=== PATIENT | male | born 1975 | race Caucasian/White ===

== ENCOUNTER 2020-08-11 20:17 | Emergency (ER) | payer OTHER ==
[~2020-08-11] VITALS: Ht 180.3 cm; Wt 96.6 kg
[2020-08-11 20:20] VITALS: BP 156/84
--- NOTE | 2020-08-11 20:20 | NUR ---
PT. IS A 45 Y/O MALE THAT CAME INTO ED WITH C/O ELEVATED BP. PT. STATES THAT HE TOOK HIS BP AT 7:29PM AND THE READING WAS 200/101. UPON ASSESSMENT, RECHECKED PT. BP AND IT WAS 156/94. PT. STATES THAT HE DID NOT TAKE HIS BLOOD PRESSURE MEDICATION TODAY. PT. ALSO STATES 0/10 ON THE PAIN SCALE. SKIN IS PINK/WARM/DRY; AAOX4 WITH EVEN AND STEADY GAIT; LUNGS CLEAR BL; HR EVEN AND REGULAR; PT DENIES ANY FEVER, CP, SOB, OR COUGH AT THIS TIME; VSS; PATIENT POSITIONED FOR COMFORT; HOB ELEVATED; BEDRAILS UP X2; BED DOWN. ER MD MADE AWARE OF PT STATUS. PMH: DM 2 AND HTN ALLERGIES: PENICILLINS
--- NOTE | 2020-08-11 20:21 | NUR ---
PT AMBULATED TO BED 11.
--- NOTE | 2020-08-11 20:30 | NUR ---
CONNIE HORN AT BEDSIDE FOR EXAMINATION
[2020-08-11] MEDS ORDERED: KETOROLAC 60 MG/2 ML VIAL IM ONE (20:45)
[2020-08-11] MEDS ORDERED: ATA25 PO (20:48)
--- NOTE | 2020-08-11 20:56 | NUR ---
PT. LAYING COMFORTABLY IN BED, PHONE IN HAND PLAYING GAME. VOICES NO COMPLAINTS AT THIS TIME. AWAITING DISPOSTION
[2020-08-11 21:18] VITALS: BP 148/84
--- NOTE | 2020-08-11 21:18 | NUR ---
Patient discharged with v/s stable. Written and verbal after care instructions given and explained. Patient alert, oriented and verbalized understanding of instructions. Ambulatory with steady gait. All questions addressed prior to discharge. ID band removed. Patient advised to follow up with PMD. Rx of ATARAX HCL given. Patient educated on indication of medication including possible reaction and side effects. Opportunity to ask questions provided and answered.
== END 2020-08-11 21:18 | disposition home or self-care (01) ==
LOC: MED 20:17
DX: I10 Essential (primary) hypertension (principal); F41.9 Anxiety disorder, unspecified; E11.9 Type 2 diabetes mellitus without complications; F17.200 Nicotine dependence, unspecified, uncomplicated; Z98.890 Other specified postprocedural states; Z79.899 Other long term (current) drug therapy; Z88.0 Allergy status to penicillin
CPT/HCPCS: 96372; 99283; J1885

== ENCOUNTER 2020-08-16 15:35 | Emergency (ER) | payer OTHER ==
[~2020-08-16] VITALS: Ht 180.3 cm; Wt 97.1 kg
[~2020-08-16 15:35] MED LIST: ATA25 PO
[2020-08-16 15:44] VITALS: BP 165/97
--- NOTE | 2020-08-16 15:58 | NUR ---
pt ambulated to bed 05.
--- NOTE | 2020-08-16 16:07 | NUR ---
45 Y/O MALE C/O HEADACHE 08/17 DESCRIBES ACHING, NUMBNESS/TINGLING TO LEFT ARM RADIATES TO LEFT HAND AND LEG X1DAY. PT STATES HE WAS RECENTLY SEEN HERE IN THE ER FOR SIMILAR SYMPTOMS AND WAS DX AND GIVEN ATARAX. NO RELIEF OF SYMPTOMS AFTER TAKING ONE TODAY. PT STATES +N/-V, DENIES FEVER/CHILLS. PMH: HTN, DM, ANXIETY ALLERGY: PCN
[2020-08-16] MEDS ORDERED: LORazepam 1 MG TAB PO ONE (16:25)
[2020-08-16] MEDS ORDERED: ATI.5 PO (18:17)
== END 2020-08-16 18:27 | disposition home or self-care (01) ==
LOC: MED 15:35
DX: F41.9 Anxiety disorder, unspecified (principal); I10 Essential (primary) hypertension; R20.0 Anesthesia of skin; R51.9 Headache, unspecified; H53.8 Other visual disturbances; E11.9 Type 2 diabetes mellitus without complications; Z79.899 Other long term (current) drug therapy; Z88.0 Allergy status to penicillin
CPT/HCPCS: 70450; 99284

== ENCOUNTER 2021-02-12 07:58 | Emergency (ER) | payer OTHER ==
[~2021-02-12] VITALS: Ht 180.3 cm; Wt 102.1 kg
[~2021-02-12 07:58] MED LIST changes: +ATI.5 PO
[2021-02-12 08:23] VITALS: BP 152/95
[2021-02-12] MEDS ORDERED: CLIN300C2 PO (08:35)
[2021-02-12] MEDS ORDERED: ACET-8386 PO (08:35)
--- NOTE | 2021-02-12 09:02 | NUR ---
no nursing interventions provided
[2021-02-12 09:03] VITALS: BP 152/95
--- NOTE | 2021-02-12 09:03 | NUR ---
Patient discharged with v/s stable. Written and verbal after care instructions given and explained. Patient alert, oriented and verbalized understanding of instructions. Ambulatory with steady gait. All questions addressed prior to discharge. ID band removed. Patient advised to follow up with PMD. Rx of NORCO 5-325 AND CLINDAMYCIN given. Patient educated on indication of medication including possible reaction and side effects. Opportunity to ask questions provided and answered.
== END 2021-02-12 09:03 | disposition home or self-care (01) ==
LOC: MED 07:58
DX: K04.7 Periapical abscess without sinus (principal); E11.9 Type 2 diabetes mellitus without complications; I10 Essential (primary) hypertension; F17.200 Nicotine dependence, unspecified, uncomplicated; Z79.899 Other long term (current) drug therapy; Z98.890 Other specified postprocedural states; Z88.0 Allergy status to penicillin
CPT/HCPCS: 99283

== ENCOUNTER 2021-04-16 09:54 | Inpatient (IN) | payer OTHER, SELFPAY ==
[~2021-04-16] VITALS: Ht 180.3 cm; Wt 101.6 kg
[~2021-04-16 09:54] MED LIST changes: +ACET-8386 PO; +CLIN300C2 PO
[2021-04-16 10:10] VITALS: BP 160/88
[2021-04-16 11:25] LABS: BASOPHILS % (AUTO) 0.6 % (0.0-2.0); EOSINOPHILS # (AUTO) 0.3 K/uL (0-0.4); EOSINOPHILS % (AUTO) 3.1 % (0.0-4.0); HEMATOCRIT 44.9 % (36-52); HEMOGLOBIN 14.9 g/dL (12.0-18.0); LYMPHOCYTES # (AUTO) 1.3 K/uL (2.0-11.5); LYMPHOCYTES % (AUTO) 15.5 % (20.5-51.1); MEAN CORPUSCULAR HEMOGLOBIN 28 pg (27-31); MEAN CORPUSCULAR HGB CONC 33 g/dL (33-37); MONOCYTES # (AUTO) 0.5 K/uL (0.8-1.0); MONOCYTES % (AUTO) 6.1 % (1.7-9.3); NEUTROPHILS # (AUTO) 6.3 K/uL (1.8-7.7); NEUTROPHILS % (AUTO) 74.7 % (42.2-75.2); PLATELET COUNT (AUTO) 231 K/uL (140-450); RED BLOOD CELL COUNT(AUTO) 5.34 MIL/uL (4.20-6.10); RED CELL DISTRIBUTION WIDTH 13.8 % (11.6-13.7); WHITE BLOOD COUNT (AUTO) 8.5 K/uL (4.8-10.8)
--- NOTE | 2021-04-16 11:44 | NUR ---
PT C/O LOWER ABDOMINAL PAIN RADIATING TO BACK X1 WEEK. DENIES N/V.
[2021-04-16 11:52] LABS: ALBUMIN 3.2 g/dL (3.4-5.0); ANION GAP 11.4 (8-16); CARBON DIOXIDE 27.6 mmol/L (21-32); CREATININE 0.8 mg/dL (0.6-1.3)
[2021-04-16] MEDS ORDERED: LEVOFLOXACIN 750 MG/D5W PREMIX 150 ML IV ONE (13:00)
[2021-04-16] MEDS ORDERED: metroNIDAZOLE 500 MG/NS PREMIX 100 ML IV ONE (13:00)
[2021-04-16] MEDS ORDERED: ACETAMINOPHEN 325 MG TAB PO PRN (13:55)
[2021-04-16] MEDS ORDERED: ONDANSETRON 4 MG/2 ML VIAL IVP PRN (13:55)
[2021-04-16] MEDS: NACL 0.9% 1,000 ML IV SCH ×2 (14:21→21:02)
--- NOTE | 2021-04-16 14:46 | NUR ---
DC PLANNIN YRS OLD MALE PATIENT WAS ADMITTED FROM HOME WITH A DX OF PERFORATED DIVERTICULITIS. PATIENT HAS A HX OF CHRONIC PAIN HTN, DM, AND PSORIASIS. CT ABD SHOWED PERFORATED DIVERTICULITIS. ADMINISTERED IVF, IV ABX FLAGYL AND LEVAQUIN AND PAIN MEDS. KEPT PT NPO . CONSULTED WITH SURGEON DR BOWSER. DC PLAN TO GO HOME WHEN STABLE CM TO FOLLOW Addendum: 04/18/21 at 1454 by Renee Ku RN DC PLANNING: SEEN BY DR BOWSER ORDERED CONTINUING WITH CONSERVATIVE MANAGEMENT AND ABX. ADVANCED DIET. DC PLAN TO GO HOME TOMORROW IF STABLE WITH PO INTAKES. CM TO FOLLOW.
--- NOTE | 2021-04-16 15:00 | NUR ---
[place] no changes noted. safety maintained.
--- NOTE | 2021-04-16 17:00 | NUR ---
pt denies pain or discomfort. npo at this time. pending med surg bed.
--- NOTE | 2021-04-16 18:00 | NUR ---
PATIENT ARRIVED ON UNIT FROM ER. NO DISTRESS NOTED. PAIN WITHIN TOLERABLE. AAOX4, CALM, COOPERATIVE, SKIN INTACT. ORIENTED PATIENT TO ROOM AND CALL LIGHT. REVIEWED PLAN OF CARE WITH PATIENT. VERBALIZED UNDERSTANDING. SAFETY MEASURES IN PLACE, CALL LIGHT WITHIN REACH. WILL CONTINUE TO MONITOR.
--- NOTE | 2021-04-16 19:45 | NUR ---
GAVE REPORT TO PROGRAMMER BUSINESS NURSE FOR CONTINUITY OF CARE. PATIENT IN STABLE CONDITION.
[2021-04-16] MEDS: metroNIDAZOLE 500 MG/NS PREMIX 100 ML IV SCH (21:02)
[2021-04-16] MEDS: MORPHINE SULFATE 4 MG/ML SYR IVP PRN (21:03)
--- NOTE | 2021-04-16 22:00 | NUR ---
DR. BOWSER AT BEDSIDE GOING OVER PLAN OF CARE FOR PATIENT. INSTRUCTED PATIENT IS NPO BUT ICE CHIPS IS OK AND SURGERY IS NOT NEEDED AT THIS TIME.
[2021-04-16 22:20] VITALS: BP 125/77
[2021-04-17] MEDS: MORPHINE SULFATE 4 MG/ML SYR IVP PRN ×3 (02:58→20:16)
[2021-04-17 04:00] VITALS: BP 121/79
[2021-04-17] MEDS: metroNIDAZOLE 500 MG/NS PREMIX 100 ML IV SCH ×3 (05:12→20:14)
[2021-04-17 07:09] LABS: ANION GAP 12.4 (8-16); CARBON DIOXIDE 26.7 mmol/L (21-32); CREATININE 0.9 mg/dL (0.6-1.3); POTASSIUM 4.1 mmol/L (3.5-5.1)
[2021-04-17 07:28] LABS: BASOPHILS % (AUTO) 0.6 % (0.0-2.0); EOSINOPHILS # (AUTO) 0.3 K/uL (0-0.4); EOSINOPHILS % (AUTO) 4.3 % (0.0-4.0); HEMOGLOBIN 14.2 g/dL (12.0-18.0); LYMPHOCYTES # (AUTO) 1.7 K/uL (2.0-11.5); LYMPHOCYTES % (AUTO) 25.1 % (20.5-51.1); MEAN CORPUSCULAR HEMOGLOBIN 27 pg (27-31); MEAN CORPUSCULAR HGB CONC 32 g/dL (33-37); MEAN CORPUSCULAR VOLUME 84.4 fL (80-94); MONOCYTES # (AUTO) 0.6 K/uL (0.8-1.0); MONOCYTES % (AUTO) 7.9 % (1.7-9.3); NEUTROPHILS # (AUTO) 4.3 K/uL (1.8-7.7); NEUTROPHILS % (AUTO) 62.1 % (42.2-75.2); PLATELET COUNT (AUTO) 220 K/uL (140-450); RED BLOOD CELL COUNT(AUTO) 5.22 MIL/uL (4.20-6.10); RED CELL DISTRIBUTION WIDTH 13.8 % (11.6-13.7); WHITE BLOOD COUNT (AUTO) 6.9 K/uL (4.8-10.8)
--- NOTE | 2021-04-17 07:30 | NUR ---
RECEIVED REPORT FROM LENS FINISHER NURSE.
[2021-04-17] MEDS: NACL 0.9% 1,000 ML IV SCH ×2 (09:34→20:14)
--- NOTE | 2021-04-17 10:14 | NUR ---
PATIENT HAS BEEN SCREENED AND CATEGORIZED LOW NUTRITION RISK. PATIENT WILL BE SEEN WITHIN 7 DAYS OF ADMISSION. 04/23/[address]
--- NOTE | 2021-04-17 11:20 | NUR ---
PT ATTEMPTING TO DETERMINE PRESCRIPTION NAME FOR PSORIASIS MEDICATION. NOTIFIED MD OF PT COMPLAINT OF ITCHING AND BLEEDING PSORIASIS PATCHES
[2021-04-17 12:00] VITALS: BP 126/76
[2021-04-17] MEDS: LEVOFLOXACIN 500 MG/D5W PREMIX 100 ML IV SCH (12:13)
[2021-04-17] MEDS ORDERED: TRIAMCINOLONE 0.1% CRM 15 GM TUBE TP PRN (14:45)
--- NOTE | 2021-04-17 15:42 | NUR ---
PT RECEIVED PSORIASIS MEDICATION PER MD ORDER. APPLIED CREAM TO PT BACK AND SHOULDERS. PT PROVIDED WARMER TO ASSIST WITH PAIN AND ITCHING
--- NOTE | 2021-04-17 19:21 | NUR ---
ENDORSED PT TO TOE STRIPPER NURSE
--- NOTE | 2021-04-17 19:22 | NUR ---
RECEIVED BEDSIDE REPORT FROM DAY RN. PT IS AAOX4 AMBULATORY ABLE TO MAKE NEEDS KNOWN. C/C ABD PAIN. ON BOWEL REST OK TO HAVE ICE CHIPS. IV ON R FA 20 G IVF INFUSING PER ORDERS. SKIN IS INTACT. POC REVIEWED WITH PT. CALL LIGHT IS WITHIN REACH. WILL CONTINUE TO MONITOR.
[2021-04-17 20:00] VITALS: BP 142/81
--- NOTE | 2021-04-17 20:14 | NUR ---
VSS. PT REQUEST BS TO BE CHECKED. BS 105. CANDIDO ABX NO INFUSING PER ORDERS. PRN MORPHINE GIVEN FOR ABD PAIN. MED EDUCATION GIVEN. ALL SAFETY MEASURES ARE IN PLACE. WILL CONTINUE TO MONITOR.
--- NOTE | 2021-04-17 22:37 | NUR ---
rounds made. pt resting in bed using cellphone denies any distress. gave ice chips per request. all needs met.
--- NOTE | 2021-04-17 23:58 | NUR ---
PATIENT OBSERVED RESTING IN BED USING PHONE. DENIES ANY DISTRESS. ALL NEEDS MET. WILL CONTINUE TO MONITOR.
--- NOTE | 2021-04-18 02:00 | NUR ---
ROUNDS MADE. PT OBSERVED LAYING IN BED WITH EYES CLOSED APPEARS TO BE ASLEEP. RESPIRATIONS ARE EQUAL AND UNLABORED. NO S/SX OF DISTRESS. CALL LIGHT IS WITHIN REACH.
[2021-04-18 04:00] VITALS: BP 121/62
--- NOTE | 2021-04-18 04:23 | NUR ---
VITAL SIGNS ARE WITHIN NORMAL LIMITS. ALL SAFETY MEASURES ARE IN PLACE. WILL CONTINUE TO MONITOR
[2021-04-18] MEDS: metroNIDAZOLE 500 MG/NS PREMIX 100 ML IV SCH ×3 (05:05→20:21)
[2021-04-18] MEDS: NACL 0.9% 1,000 ML IV SCH ×2 (06:48→15:55)
--- NOTE | 2021-04-18 07:27 | NUR ---
GAVE BEDSIDE REPORT TO DAY RN. PT ENDORSED IN STABLE CONDITION.
--- NOTE | 2021-04-18 07:30 | NUR ---
RECEIVED REPORT FROM LINING IRONER NURSE.
--- NOTE | 2021-04-18 11:12 | NUR ---
PT DENIES PAIN. NO S/S OF DISTRESS. CALL LIGHT IN REACH. PT REQUESTED TO SHOWER AFTER LUNCH AND AFTERNOON MEDICATIONS ARE COMPLETED
[2021-04-18] MEDS: LEVOFLOXACIN 500 MG/D5W PREMIX 100 ML IV SCH (11:41)
[2021-04-18 12:00] VITALS: BP 128/78
--- NOTE | 2021-04-18 13:11 | NUR ---
PT STARTED ON CLEAR LIQUID DIET. DC TOMORROW PER DR. BOWSER
--- NOTE | 2021-04-18 17:09 | NUR ---
PT TOLERATED CLEAR LIQUID DIET. PT EDUCATED ON FOODS ASSOCIATED WITH DIVERTICULOSIS DIAGNOSIS. PT VERBALIZED UNDERSTANDING. PT WAS ABLE TO MAKE MEAL PLAN FOR HOME COOKING. CALL LIGHT IN REACH. ALL SAFETY MEASURES IN PLACE
--- NOTE | 2021-04-18 19:18 | NUR ---
ENDORSED PT TO VICE PRESIDENT GLOBAL DIGITAL MARKETING NURSE
--- NOTE | 2021-04-18 19:50 | NUR ---
RECEIVED REPORT AT BEDSIDE.PT IS AWAKE,A&OX4.RESP.UNLABORED.IVF INFUSING WELL.LUNGS CLEAR.NO C/O PAIN NOW.CALL LIGHT WITHIN REACH.WILL CONTINUE MONITORING.
[2021-04-18 20:00] VITALS: BP 131/85
[2021-04-18] MEDS: MORPHINE SULFATE 4 MG/ML SYR IVP PRN (22:40)
--- NOTE | 2021-04-19 | NUR ---
HAD C/O ABD.PAIN EARLIER.PAIN MED GIVEN,NO C/O PAIN NOW.IVF IS IN PROGRESS.CALL LIGHT IN REACH.
[2021-04-19 04:00] VITALS: BP 128/75
[2021-04-19] MEDS: NACL 0.9% 1,000 ML IV SCH ×2 (04:50→11:34)
[2021-04-19] MEDS: metroNIDAZOLE 500 MG/NS PREMIX 100 ML IV SCH ×2 (04:51→12:36)
--- NOTE | 2021-04-19 07:31 | NUR ---
ENDORSED TO AM NURSE.
[2021-04-19 08:00] VITALS: BP 168/69
[2021-04-19] MEDS: MORPHINE SULFATE 4 MG/ML SYR IVP PRN (08:34)
[2021-04-19 10:21] VITALS: BP 159/95
--- NOTE | 2021-04-19 10:24 | NUR ---
PATIENT REPORTS PAIN IS IMPROVED. BP 159/95. PATIENT AMBULATING TO SHOWER INDEPENDENTLY.
[2021-04-19] MEDS: LEVOFLOXACIN 500 MG/D5W PREMIX 100 ML IV SCH (11:33)
--- NOTE | 2021-04-19 11:41 | NUR ---
BLOOD SUGAR 119. REPEAT BP WNL. NO COMPLAINTS AT THIS TIME.
[2021-04-19 11:42] VITALS: BP 133/82
[2021-04-19] MEDS ORDERED: CIPR500T4 PO (14:18)
[2021-04-19] MEDS ORDERED: METR-520 PO (14:20)
[2021-04-19 14:47] VITALS: BP 133/82
--- NOTE | 2021-04-19 15:30 | NUR ---
RECEIVED DISCHARGE ORDER, EXPLAINED MEDICATIONS, SIDE EFFECTS SCHEDULE TO PATIENT, VERBALIZED UNDERSTANDING.PATIENT AWARE OF RETURN PRECAUTIONS. PAIN CONTROLLED AT THIS TIME. IV REMOVED WITH CATHETER TIP INTACT. WALKED WITH PATIENT TO LOBBY, PER PATIENT, HE WILL WALK HOME BECAUSE HE LIVES NEARBY.
== END 2021-04-19 15:30 | disposition home or self-care (01) | DRG 244 ==
LOC: MED 09:54 → MMU 13:57 → MTU 16:55
PROVIDERS: ADMIT Hospitalist; ATTEND Hospitalist
DX: K57.20 Diverticulitis of large intestine with perforation and abscess without bleeding (principal); E44.1 Mild protein-calorie malnutrition; E11.9 Type 2 diabetes mellitus without complications; I10 Essential (primary) hypertension; Z20.822 Contact with and (suspected) exposure to COVID-19; L40.9 Psoriasis, unspecified; M54.9 Dorsalgia, unspecified; G89.29 Other chronic pain; Z88.0 Allergy status to penicillin; Z79.899 Other long term (current) drug therapy; Z79.2 Long term (current) use of antibiotics; Z68.31 Body mass index [BMI] 31.0-31.9, adult
CPT/HCPCS: 36415; 80048; 80053; 82948; 83690; 83735; 85025; 87040; 87081; 96365; 96368; 99291; J1956; J2270; J3490

== ENCOUNTER 2021-06-28 10:02 | Emergency (ER) | payer OTHER ==
[~2021-06-28] VITALS: Ht 180.3 cm; Wt 101.2 kg
[~2021-06-28 10:02] MED LIST changes: +CIPR500T4 PO; -CLIN300C2 PO; +METR-520 PO
[2021-06-28 10:10] VITALS: BP 129/84
--- NOTE | 2021-06-28 10:15 | NUR ---
46 Y/O MALE BIB FOR LOWER ABDOMINAL PAIN 7/10 THROBBING X2DAYS. PT STATED DENIED ANY BLOOD IN STOOL AND GROSS HEMATURIA. TOOK IBUPROFEN 800MG FOR PAIN, WITH MINIMAL REFLIEF. STATED THROBBING PAIN WHEN GOING TO THE BATHROOM AND GOING TO PEE. DIARRHEA PMH: DM, HTN, DIVERTICULOSIS, NEUROPATHY, PSORIASIS ALLERGIES: PENICILLINS RX: GABAPENTIN, IBUPROFEN 800, METFORMIN, NAPROXEN, LOSARTAN
--- NOTE | 2021-06-28 10:37 | NUR ---
LAB AT BEDSIDE
[2021-06-28 10:49] LABS: BASOPHILS % (AUTO) 0.6 % (0.0-2.0); EOSINOPHILS # (AUTO) 0.3 K/uL (0-0.4); EOSINOPHILS % (AUTO) 5.6 % (0.0-4.0); LYMPHOCYTES % (AUTO) 38.3 % (20.5-51.1); MEAN CORPUSCULAR HEMOGLOBIN 28 pg (27-31); MEAN CORPUSCULAR HGB CONC 33 g/dL (33-37); MEAN CORPUSCULAR VOLUME 83.7 fL (80-94); MONOCYTES # (AUTO) 0.4 K/uL (0.8-1.0); MONOCYTES % (AUTO) 7.1 % (1.7-9.3); NEUTROPHILS # (AUTO) 2.5 K/uL (1.8-7.7); NEUTROPHILS % (AUTO) 48.4 % (42.2-75.2); PLATELET COUNT (AUTO) 276 K/uL (140-450); RED BLOOD CELL COUNT(AUTO) 5.37 MIL/uL (4.20-6.10); RED CELL DISTRIBUTION WIDTH 14.6 % (11.6-13.7); WHITE BLOOD COUNT (AUTO) 5.2 K/uL (4.8-10.8)
[2021-06-28 10:49] LABS: APPEARANCE,URINE CLEAR (CLEAR); BILIRUBIN,URINE NEGATIVE (NEGATIVE); BLOOD, URINE NEGATIVE (NEGATIVE); COLOR,URINE YELLOW (YELLOW); LEUKOCYTE ESTERASE ,URINE NEGATIVE (NEGATIVE); NITRITE, URINE NEGATIVE (NEGATIVE); UGLUCOSE NEGATIVE (NEGATIVE)
[2021-06-28 11:00] LABS: ALBUMIN 3.7 g/dL (3.4-5.0); ANION GAP 14.6 (8-16); CARBON DIOXIDE 24.7 mmol/L (21-32); CREATININE 0.7 mg/dL (0.6-1.3); POTASSIUM 4.3 mmol/L (3.5-5.1); TOTAL BILIRUBIN 0.3 mg/dL (0.0-1.0)
[2021-06-28 12:05] VITALS: BP 111/56
[2021-06-28] MEDS ORDERED: LOPE1TAB14 PO (13:08)
[2021-06-28] MEDS ORDERED: ONDA-188 PO (13:08)
[2021-06-28] MEDS ORDERED: BEN10 PO (13:08)
--- NOTE | 2021-06-28 13:26 | NUR ---
Patient discharged with v/s stable. Written and verbal after care instructions ABOUT ABD PAIN AND VIRAL GASTROENTERITIS given and explained. Patient alert, oriented and verbalized understanding of instructions. Ambulatory with steady gait. All questions addressed prior to discharge. ID band removed. Patient advised to follow up with PMD. Rx of BENTYL, ZOFRAN ODT, IMMODIUM MULTI-SYMPTOM REL CAPLET given. Patient educated on indication of medication including possible reaction and side effects. Opportunity to ask questions provided and answered.
== END 2021-06-28 13:26 | disposition home or self-care (01) ==
LOC: MED 10:02
DX: A08.4 Viral intestinal infection, unspecified (principal); E11.9 Type 2 diabetes mellitus without complications; I10 Essential (primary) hypertension; Z88.0 Allergy status to penicillin; Z79.899 Other long term (current) drug therapy
CPT/HCPCS: 36415; 80053; 81002; 81003; 83690; 85025; 87086; 99284

== ENCOUNTER 2021-07-23 10:53 | Day surgery (SDC) | payer OTHER ==
[~2021-07-23] VITALS: Ht 180.3 cm; Wt 101.6 kg
[~2021-07-23 10:53] MED LIST changes: +BEN10 PO; +LOPE1TAB14 PO; +ONDA-188 PO
[2021-07-23] MEDS ORDERED: MIDAZOLAM 2 MG/2 ML VIAL ONE ×2 (12:22→12:23)
[2021-07-23] MEDS ORDERED: diphenhydrAMINE 50 MG/ML VIAL ONE (12:22)
[2021-07-23] MEDS ORDERED: fentaNYL citrate 0.05 MG/ML VIAL ONE (12:22)
[2021-07-23] MEDS ORDERED: LIDOCAINE 2% 100 MG/5 ML UJET TP ONE (12:23)
[2021-07-23] MEDS ORDERED: MIDAZOLAM 2 MG/2 ML VIAL IVP ONE (14:00)
[2021-07-23] MEDS ORDERED: diphenhydrAMINE 50 MG/ML VIAL IVP ONE (14:00)
[2021-07-23] MEDS ORDERED: fentaNYL citrate 0.05 MG/ML VIAL IVP ONE (14:00)
== END 2021-07-23 13:54 | disposition home or self-care (01) ==
LOC: MDS 10:53 → MMU 10:54 → MDS 13:54
PROVIDERS: ATTEND Internal Medicine Gastroenterology
DX: Z12.11 Encounter for screening for malignant neoplasm of colon (principal); D12.2 Benign neoplasm of ascending colon; K57.92 Diverticulitis of intestine, part unspecified, without perforation or abscess without bleeding; I10 Essential (primary) hypertension; E11.9 Type 2 diabetes mellitus without complications; Z88.0 Allergy status to penicillin; Z79.899 Other long term (current) drug therapy; Z20.822 Contact with and (suspected) exposure to COVID-19
CPT/HCPCS: 45385; 87426; J1200; J2250; J3010

== ENCOUNTER 2021-09-21 08:10 | Emergency (ER) | payer OTHER ==
[~2021-09-21] VITALS: Ht 180.3 cm; Wt 102.1 kg
[2021-09-21 08:19] VITALS: BP 130/76
--- NOTE | 2021-09-21 08:23 | NUR ---
DR CORTES IN TRIAGE FOR EVAL
--- NOTE | 2021-09-21 08:23 | NUR ---
1Y01M MALE BIB MOTHER C/O OF SWELLING AND REDNESS OF THE LEFT MIDDLE FINGER. PER MOTHER NOTED SMALL CUT ON THE AREA. NKA PMH: DENIES
[2021-09-21] MEDS ORDERED: KETOROLAC 30 MG/ML VIAL IM ONE (08:30)
[2021-09-21] MEDS ORDERED: LID5T TP (08:32)
[2021-09-21] MEDS ORDERED: CYCL-711 PO (08:32)
[2021-09-21] MEDS ORDERED: DICL100G5 TP (08:32)
--- NOTE | 2021-09-21 08:46 | NUR ---
dr mccallum speaking to pt
--- NOTE | 2021-09-21 08:47 | NUR ---
pt stated decrease in pain sensation at this time
--- NOTE | 2021-09-21 08:51 | NUR ---
Patient discharged with v/s stable. Written and verbal after care instructions given and explained. Patient alert, oriented and verbalized understanding of instructions. Ambulatory with steady gait. All questions addressed prior to discharge. ID band removed. Patient advised to follow up with PMD. Rx of flexerl, diclofenac sodium, lidoderm given. Patient educated on indication of medication including possible reaction and side effects. Opportunity to ask questions provided and answered.
== END 2021-09-21 08:51 | disposition home or self-care (01) ==
LOC: MED 08:10
DX: M54.50 Low back pain, unspecified (principal); M62.838 Other muscle spasm; G89.29 Other chronic pain; E11.9 Type 2 diabetes mellitus without complications; I10 Essential (primary) hypertension; L40.9 Psoriasis, unspecified; Z79.899 Other long term (current) drug therapy; Z88.0 Allergy status to penicillin
CPT/HCPCS: 96372; 99283; J1885

== ENCOUNTER 2021-12-30 16:12 | Emergency (ER) | payer OTHER ==
[~2021-12-30] VITALS: Ht 180.3 cm; Wt 101.4 kg
[~2021-12-30 16:12] MED LIST changes: +CYCL-711 PO; +DICL100G5 TP; +LID5T TP
[2021-12-30 17:00] VITALS: BP 171/94
--- NOTE | 2021-12-30 17:08 | NUR ---
COVID, FLU SWABS DONE.
--- NOTE | 2021-12-30 18:33 | NUR ---
Patient being evaluated by LUIS EDUARDO RODRIGUEZ at [facility].
[2021-12-30] MEDS ORDERED: BENZ-300 PO (18:36)
[2021-12-30] MEDS ORDERED: IBUP-2213 PO (18:36)
[2021-12-30] MEDS ORDERED: PROM118S5 PO (18:36)
[2021-12-30] MEDS ORDERED: TAM75 PO (19:51)
[2021-12-30 19:57] VITALS: BP 154/87
--- NOTE | 2021-12-30 19:57 | NUR ---
Patient discharged with v/s stable. Written and verbal after care instructions given and explained. Patient alert, oriented and verbalized understanding of instructions. Ambulatory with steady gait. All questions addressed prior to discharge. ID band removed. Patient advised to follow up with PMD. Rx of Ibuprofen, Cepacol sore throat Lozenge and Promethazine-Dm Syrup given. Patient educated on indication of medication including possible reaction and side effects. Opportunity to ask questions provided and answered.
== END 2021-12-30 19:57 | disposition home or self-care (01) ==
LOC: MED 16:12
DX: B34.9 Viral infection, unspecified (principal); Z20.822 Contact with and (suspected) exposure to COVID-19; J10.1 Influenza due to other identified influenza virus with other respiratory manifestations; E11.9 Type 2 diabetes mellitus without complications; I10 Essential (primary) hypertension; Z88.0 Allergy status to penicillin; Z79.899 Other long term (current) drug therapy
CPT/HCPCS: 99283

== ENCOUNTER 2022-01-28 13:50 | Emergency (ER) | payer OTHER ==
[~2022-01-28] VITALS: Ht 180.3 cm; Wt 102.1 kg
[~2022-01-28 13:50] MED LIST changes: -ACET-8386 PO; +ACET-8905 PO; +BENZ-300 PO; +IBUP-2213 PO; +PROM118S5 PO; +TAM75 PO
[2022-01-28 14:06] VITALS: BP 159/90
--- NOTE | 2022-01-28 14:08 | NUR ---
46/M WALKED IN C/O SORE THROAT ONSET TODAY ACCOMPANIED BY GREEN PHLEGM. PT REPORTS BEING SEEN HERE 2 WKS AGO FOR SAME S/SX AND WAS DX FLU. DENIES FEVER, AFEBRILE AT BEDSIDE. PT SWABBED FOR COVID, FLU, AND STREP. PT AMBULATED TO LOBBY. VITALS STABLE, AAO4. PMH: DM, HTN
[2022-01-28] MEDS ORDERED: BPM/118S31 PO (15:50)
[2022-01-28] MEDS ORDERED: CEPH-588 PO (15:50)
[2022-01-28] MEDS ORDERED: IBUP-2213 PO (15:50)
--- NOTE | 2022-01-28 15:53 | NUR ---
Discharged by LUIS EDUARDO Jones. Patient discharged with v/s stable. Written and verbal after care instructions given. Patient alert, oriented and verbalized understanding of instructions. Ambulatory with steady gait. All questions addressed prior to discharge. ID band removed. Patient advised to follow up with PMD. Rx of Bromfed, Keflex and Ibuprofen given. Opportunity to ask questions provided and answered. WORK NOTE HANDED TO PATIENT.
--- NOTE | 2022-01-28 16:47 | NUR ---
The patient's care was reviewed and supervised by Keri Gama, RN, RN.
== END 2022-01-28 15:53 | disposition home or self-care (01) ==
LOC: MED 13:50
DX: J02.0 Streptococcal pharyngitis (principal); Z20.822 Contact with and (suspected) exposure to COVID-19; H92.03 Otalgia, bilateral; E11.9 Type 2 diabetes mellitus without complications; I10 Essential (primary) hypertension; Z79.899 Other long term (current) drug therapy; Z98.890 Other specified postprocedural states; Z88.0 Allergy status to penicillin
CPT/HCPCS: 87081; 99283

== ENCOUNTER 2022-08-01 14:42 | Inpatient (IN) | payer OTHER ==
[~2022-08-01] VITALS: Ht 180.3 cm; Wt 104.3 kg
[~2022-08-01 14:42] MED LIST changes: +BPM/118S31 PO; +CEPH-588 PO
[2022-08-01 14:44] VITALS: BP 148/94; PULSE 114; RESP 16; TEMP 97; O2SAT 96
--- NOTE | 2022-08-01 14:50 | NUR ---
blood glucose 301
[2022-08-01] MEDS ORDERED: NACL 0.9% 1,000 ML IV ONE (15:10)
[2022-08-01] MEDS ORDERED: ONDANSETRON 4 MG/2 ML VIAL IVP ONE (15:10)
[2022-08-01] MEDS ORDERED: MORPHINE SULFATE 4 MG/ML SYR IVP ONE (15:10)
[2022-08-01 15:35] LABS: BASOPHILS # (AUTO) 0.1 K/uL (0.00-0.22); EOSINOPHILS # (AUTO) 0.4 K/uL (0-0.4); HEMATOCRIT 44.7 % (36-52); HEMOGLOBIN 14.5 g/dL (12.0-18.0); LYMPHOCYTES % (AUTO) 30.8 % (20.5-51.1); MEAN CORPUSCULAR HEMOGLOBIN 28 pg (27-31); MEAN CORPUSCULAR HGB CONC 32 g/dL (33-37); MEAN CORPUSCULAR VOLUME 85.3 fL (80-94); MONOCYTES # (AUTO) 0.3 K/uL (0.8-1.0); MONOCYTES % (AUTO) 5.3 % (1.7-9.3); NEUTROPHILS # (AUTO) 3.7 K/uL (1.8-7.7); NEUTROPHILS % (AUTO) 56.9 % (42.2-75.2); PLATELET COUNT (AUTO) 255 K/uL (140-450); RED BLOOD CELL COUNT(AUTO) 5.24 MIL/uL (4.20-6.10); RED CELL DISTRIBUTION WIDTH 13.4 % (11.6-13.7); WHITE BLOOD COUNT (AUTO) 6.6 K/uL (4.8-10.8)
[2022-08-01 15:40] LABS: APPEARANCE,URINE CLEAR (CLEAR); BILIRUBIN,URINE NEGATIVE (NEGATIVE); BLOOD, URINE NEGATIVE (NEGATIVE); COLOR,URINE YELLOW (YELLOW); LEUKOCYTE ESTERASE ,URINE NEGATIVE (NEGATIVE); NITRITE, URINE NEGATIVE (NEGATIVE); PH,URINE 6.5 (5.0-9.0); UGLUCOSE 3+ (NEGATIVE)
[2022-08-01 15:54] LABS: RBC,URINE 0-5 /HPF (0-5)
[2022-08-01 15:55] LABS: TRICHOMONAS,URINE None Seen /HPF (None Seen); YEAST,URINE None Seen /HPF (None Seen)
[2022-08-01 15:58] LABS: ALBUMIN 3.4 g/dL (3.4-5.0); ANION GAP 13.7 (8-16); ASPARTATE AMINOTRANSFERASE 117 U/L (15-37); CARBON DIOXIDE 27.3 mmol/L (21-32); CHLORIDE 105 mmol/L (98-107); CREATININE 1.1 mg/dL (0.6-1.3); GFR ARICAN-AMERICAN 92 mL/min (>90); GLUCOSE 285 mg/dL (74-106); SODIUM SERUM 142 mmol/L (136-145); TOTAL BILIRUBIN 0.3 mg/dL (0.0-1.0); UREA NITROGEN, BLOOD 15 mg/dL (7-18)
--- NOTE | 2022-08-01 16:09 | NUR ---
wheeled to CT in wheelchair
--- NOTE | 2022-08-01 17:04 | NUR ---
PT ABLE TO SWALLOW W/O DIFFICULTY, MADE AWARE
[2022-08-01] MEDS ORDERED: ASPIRIN 325 MG TAB PO ONE (17:35)
[2022-08-01] MEDS ORDERED: IBUP-2217 PO (18:42)
[2022-08-01] MEDS ORDERED: LOSA100T52 PO (18:42)
[2022-08-01] MEDS ORDERED: GLIP5TAB13 PO (18:42)
[2022-08-01] MEDS ORDERED: GABA300C55 PO (18:42)
[2022-08-01] MEDS ORDERED: NAPR-54 PO (18:45)
[2022-08-01] MEDS ORDERED: METF-346 PO (18:45)
--- NOTE | 2022-08-01 20:25 | NUR ---
pt given water. pt able to swallow without difficulty ER MD Butterfield made aware.
[2022-08-01] MEDS ORDERED: POTASSIUM CHLORIDE 10 MEQ TABER PO PRN (21:00)
[2022-08-01] MEDS ORDERED: ACETAMINOPHEN 325 MG TAB PO PRN (21:00)
[2022-08-01] MEDS ORDERED: MORPHINE SULFATE 4 MG/ML SYR IVP PRN (21:00)
[2022-08-01] MEDS ORDERED: ONDANSETRON 4 MG/2 ML VIAL IVP PRN (21:00)
[2022-08-01] MEDS ORDERED: KCL 20 MEQ IN 100 mL PREMIX 200 ML IV PRN (21:00)
[2022-08-01] MEDS ORDERED: HYDROcodone/APAP 5/325 MG 1 TAB TAB PO PRN (21:00)
[2022-08-01] MEDS ORDERED: MAGNESIUM OXIDE 400 MG TAB PO PRN (21:00)
[2022-08-01] MEDS ORDERED: MAG SULF 2000 MG/WATER PREMIX 50 ML IV PRN (21:00)
--- NOTE | 2022-08-01 21:14 | NUR ---
pt feeling hungry. checked the blood sugar was 131. ER MD Butterfield made aware. Per ER okay to give food.
--- NOTE | 2022-08-01 21:20 | NUR ---
Patient will be admitted to care of Robert MCKINNEY. Admited to Telemetry. Will go to room 104A. Belongings list completed. Report to Franko HERNANDEZ.
[2022-08-01 21:40] VITALS: BP 158/88; PULSE 85; PULSE 90; RESP 18; TEMP 97.4; O2SAT 97
--- NOTE | 2022-08-01 22:00 | NUR ---
RECEIVED REPORT FROM ER NURSE DIANA FOR CONTINUITY OF CARE. PATIENT IS A&O X4. PATIENT IS ON ROOM AIR, BREATHING IS NORMAL WITH SYMMETRICAL RISE AND FALL OF CHEST. IV IS A 20G LAC; RUNNING NS 80. PATIENT IS SITTING IN HIGH-FOWLERS POSITION IN BED. BED IS IN LOWEST POSITION, WHEELS LOCKED, CALL LIGHT IN PLACE. WILL CONTINUE TO OBSERVE PATIENT.
[2022-08-01] MEDS ORDERED: DEXTROSE 50% 50 ML SYR IVP PRN (22:35)
[2022-08-01] MEDS: BLOOD GLUCOSE MONITORING 1 DEV DEV FS SCH (22:40)
[2022-08-01] MEDS: NACL 0.9% 1,000 ML IV SCH (22:52)
[2022-08-01] MEDS: INSULIN LISPRO SLIDING SCALE 100 UNITS/ML VIAL SUBQ PRN (23:12)
[2022-08-02] VITALS: BP 144/75; PULSE 72; PULSE 79; RESP 18; TEMP 98.2; O2SAT 97
--- NOTE | 2022-08-02 01:00 | NUR ---
LOOKED IN ON PATIENT. PATIENT IS STILL AWAKE ON HIS PHONE. ASKED PATIENT IF HE WAS OKAY; PATIENT PLEASANTLY STATED, "YES, I'M FINE." I TOLD THE PATIENT THAT WAS GOOD AND REMINDED HIM TO USE THE CALL LIGHT IF HE NEEDED ANYTHING.
[2022-08-02 04:00] VITALS: BP 153/84; PULSE 70; PULSE 80; RESP 18; TEMP 97.9; O2SAT 97
--- NOTE | 2022-08-02 04:30 | NUR ---
LOOKED IN ON PATIENT. PATIENT WAS STILL AWAKE ON HIS PHONE. PATIENT STATED THAT HE'S STILL DOING FINE AND JUST DOESN'T FEEL LIKE SLEEPING. REMINDED PATIENT TO USE CALL LIGHT IF HE NEEDED ANYTHING.
[2022-08-02 06:36] LABS: BASOPHILS % (AUTO) 0.4 % (0.0-2.0); EOSINOPHILS # (AUTO) 0.4 K/uL (0-0.4); EOSINOPHILS % (AUTO) 5.7 % (0.0-4.0); HEMOGLOBIN 13.4 g/dL (12.0-18.0); LYMPHOCYTES # (AUTO) 1.6 K/uL (2.0-11.5); LYMPHOCYTES % (AUTO) 22.3 % (20.5-51.1); MEAN CORPUSCULAR HEMOGLOBIN 28 pg (27-31); MEAN CORPUSCULAR HGB CONC 33 g/dL (33-37); MEAN CORPUSCULAR VOLUME 84.8 fL (80-94); MONOCYTES # (AUTO) 0.4 K/uL (0.8-1.0); NEUTROPHILS # (AUTO) 4.8 K/uL (1.8-7.7); NEUTROPHILS % (AUTO) 65.6 % (42.2-75.2); PLATELET COUNT (AUTO) 212 K/uL (140-450); RED BLOOD CELL COUNT(AUTO) 4.83 MIL/uL (4.20-6.10); RED CELL DISTRIBUTION WIDTH 13.4 % (11.6-13.7); WHITE BLOOD COUNT (AUTO) 7.3 K/uL (4.8-10.8)
[2022-08-02] MEDS: INSULIN LISPRO SLIDING SCALE 100 UNITS/ML VIAL SUBQ PRN ×4 (06:36→20:53)
[2022-08-02] MEDS: BLOOD GLUCOSE MONITORING 1 DEV DEV FS SCH ×5 (06:36→20:49)
[2022-08-02 06:44] LABS: ALBUMIN 3.1 g/dL (3.4-5.0); CREATININE 0.7 mg/dL (0.6-1.3); MAGNESIUM 1.5 mg/dL (1.8-2.4); TOTAL BILIRUBIN 0.6 mg/dL (0.0-1.0)
--- NOTE | 2022-08-02 07:40 | NUR ---
GOT REPORT FROM THE NIGHT NURSE, PT SLEEPING NO SOB.[id number]
--- NOTE | 2022-08-02 07:43 | NUR ---
ENDORSED TO DAY SHIFT NURSE COLLINS FOR CONTINUITY OF CARE. PATIENT IS STABLE.
[2022-08-02 08:00] VITALS: BP 150/78; PULSE 67; PULSE 75; RESP 20; TEMP 97.8; O2SAT 96
[2022-08-02] MEDS: ATORVASTATIN 20 MG TAB PO SCH (08:37)
[2022-08-02] MEDS: DOCUSATE SODIUM 100 MG GELCAP PO SCH (08:37)
[2022-08-02] MEDS: ASPIRIN 81 MG TAB.CHEW PO SCH (08:38)
--- NOTE | 2022-08-02 09:36 | NUR ---
PATIENT HAS BEEN SCREENED AND CATEGORIZED HIGH NUTRITION RISK. PATIENT WILL BE SEEN WITHIN 1-2 DAYS OF ADMISSION. 08/01/22-08/03/[address] [facility]NS CONSULT RECEIVED FOR WOUNDS/PRESSURE INJURY
[2022-08-02] MEDS: NACL 0.9% 1,000 ML IV SCH ×2 (09:48→22:00)
[2022-08-02] MEDS: LOSARTAN 50 MG TAB PO SCH (09:48)
[2022-08-02 12:00] VITALS: BP 149/82; PULSE 66; PULSE 73; RESP 20; TEMP 98.4; O2SAT 97
--- NOTE | 2022-08-02 15:13 | NUR ---
08/02/22 RD INITIAL ASSESSMENT COMPLETED.PLEASE REFER TO NUTRITION ASSESSMENT UNDER CARE ACTIVITY FOR ESTIMATED NUTRITIONAL NEEDS. 1. CONTINUE [facility] DIET TOLERATED 2. MONITOR BLOOD GLUCOSE 3. RD TO FOLLOW-UP 3-5 DAYS, MODERATE RISK AIDEN TORIBIO RD
[2022-08-02 16:00] VITALS: BP 154/83; PULSE 61; PULSE 62; RESP 20; TEMP 98.8
[2022-08-02] MEDS ORDERED: LORazepam 0.5 MG TAB PO PRN (19:15)
--- NOTE | 2022-08-02 19:33 | NUR ---
report given to the night nurse, pt stable no SOB.[id number]
[2022-08-02 20:00] VITALS: BP 150/88; PULSE 63; PULSE 68; RESP 18; TEMP 99.1; O2SAT 95
--- NOTE | 2022-08-02 20:05 | NUR ---
RECEIVED REPORT FROM NURSE SOLE. PATIENT RESTING COMFORTABLY IN BED ALERT ORIENTED. ABLE TO MAKE NEEDS KNOWN. NO DISTRESS IN ROOM AIR. NO COMPLAINTS OF PAIN AT THIS TIME. IVF NS INFUSING ORDERED TO LAC. CALL LIGHT IN REACH.
--- NOTE | 2022-08-02 20:54 | NUR ---
ADMINISTERED SCHEDULED DUE MEDICATIONS.
[2022-08-03] VITALS: BP 149/84; PULSE 63; PULSE 64; RESP 18; TEMP 97.6; O2SAT 98
[2022-08-03] MEDS: NACL 0.9% 1,000 ML IV SCH (01:12)
[2022-08-03 04:00] VITALS: BP 141/79; PULSE 54; PULSE 67; RESP 18; TEMP 98; O2SAT 98
[2022-08-03] MEDS: BLOOD GLUCOSE MONITORING 1 DEV DEV FS SCH (06:39)
--- NOTE | 2022-08-03 06:41 | NUR ---
CHECKED BLOOD SUGAR WAS 124. NO INSULIN COVERAGE NEEDED.
[2022-08-03 06:55] LABS: ALBUMIN 2.9 g/dL (3.4-5.0); ANION GAP 10.6 (8-16); BASOPHILS % (AUTO) 0.4 % (0.0-2.0); CARBON DIOXIDE 27.6 mmol/L (21-32); CREATININE 0.7 mg/dL (0.6-1.3); EOSINOPHILS # (AUTO) 0.4 K/uL (0-0.4); EOSINOPHILS % (AUTO) 5.3 % (0.0-4.0); HEMATOCRIT 40.6 % (36-52); HEMOGLOBIN 13.2 g/dL (12.0-18.0); LYMPHOCYTES # (AUTO) 1.8 K/uL (2.0-11.5); LYMPHOCYTES % (AUTO) 26.3 % (20.5-51.1); MAGNESIUM 1.7 mg/dL (1.8-2.4); MEAN CORPUSCULAR HEMOGLOBIN 28 pg (27-31); MEAN CORPUSCULAR HGB CONC 33 g/dL (33-37); MEAN CORPUSCULAR VOLUME 85.2 fL (80-94); MONOCYTES # (AUTO) 0.4 K/uL (0.8-1.0); MONOCYTES % (AUTO) 6.4 % (1.7-9.3); NEUTROPHILS # (AUTO) 4.2 K/uL (1.8-7.7); NEUTROPHILS % (AUTO) 61.6 % (42.2-75.2); PLATELET COUNT (AUTO) 195 K/uL (140-450); POTASSIUM 4.2 mmol/L (3.5-5.1); RED BLOOD CELL COUNT(AUTO) 4.77 MIL/uL (4.20-6.10); RED CELL DISTRIBUTION WIDTH 13.2 % (11.6-13.7); TOTAL BILIRUBIN 0.8 mg/dL (0.0-1.0); WHITE BLOOD COUNT (AUTO) 6.9 K/uL (4.8-10.8)
--- NOTE | 2022-08-03 07:17 | NUR ---
GAVE BEDSIDE REPORT TO AM NURSE FOR CONTINUITY OF CARE. PATIENT STABLE.
[2022-08-03 08:00] VITALS: BP 140/72; PULSE 63; RESP 18; TEMP 99.1; O2SAT 98
[2022-08-03] MEDS: LOSARTAN 50 MG TAB PO SCH (08:07)
[2022-08-03] MEDS: ATORVASTATIN 20 MG TAB PO SCH (08:07)
[2022-08-03] MEDS: DOCUSATE SODIUM 100 MG GELCAP PO SCH (08:07)
[2022-08-03] MEDS: ASPIRIN 81 MG TAB.CHEW PO SCH (08:07)
--- NOTE | 2022-08-03 09:14 | NUR ---
WOUND CARE NOTE: SKIN ASSESSMENT DONE. PT. ADMITTED WITH PLAQUE PSORIASIS TO LIMBS AND TRUNK OF BODY ANTERIOR AND POSTERIOR, NO OPEN WOUNDS. PT IS AAX4. PER PT. HE FOLLOW UP WITH HIS DERMATOLOGY REGULARLY WITH HUMIRA INJECTIONS AND TOPICAL CREAM PRESCRIBED BY HIS ACCESSIBILITY LIFT TECHNICIAN AND NO NEED FOR RECOMMENDATIONS. OKAY WITH HYDRAGUARD BARRIER CREAMS NEEDED. POC DISCUSSED WITH PRIMARY MARY GUADALUPE.
[2022-08-03 10:23] VITALS: PULSE 65
--- NOTE | 2022-08-03 11:29 | NUR ---
P.T. NOTES P.T. EVAL COMPLETED; REFER TO EVAL FOR DETAILS.
[2022-08-03] MEDS ORDERED: ATI.5 PO (12:17)
[2022-08-03] MEDS ORDERED: HYDRAGUARD CREAM TP SCH (13:00)
[2022-08-03 13:10] VITALS: BP 140/72; PULSE 65; RESP 18; TEMP 99.1
--- NOTE | 2022-08-03 13:25 | NUR ---
[employer] Em[employer] Supervisor BIRD SITTER met with pt. to conduct a Discharge Planning Assessment. Pt maintained eye contact, spoke clearly and was able to answer all questions. pt. resides in a home with roommates, is employed and takes blood pressure regularly. When asked if he takes his blood sugar levels, pt. stated he truly does not. He has Type II Diabetes. His PCP is Dr. Hayden. BIRD SITTER will remain available as needed.
--- NOTE | 2022-08-03 13:41 | NUR ---
PT DISCHARGED, HOME DISCHARGE INSTRUCTION IS GIVEN , ID AND IV REMOVED, ESCORTED PT OUTSIDE WITHOUT DISCOMFORT.[id number]
--- NOTE | 2022-08-04 11:12 | NUR ---
CALLED DR MAURER'S OFFICE LOCATED AT [address] [place] [address]. SPOKE WITH EMMANUEL WHO INFORMED ME THAT PATIENT HAD MADE AN APPOINTMENT FOR 08/04/2022 AT 1020 AND WAS SEEN.
[2022-08-04] MEDS ORDERED: ATI.5 PO (13:10)
== END 2022-08-03 13:45 | disposition home or self-care (01) | DRG 47 ==
LOC: MED 14:42 → MMU 20:58 → MTU 21:26
PROVIDERS: ADMIT Internal Medicine; ATTEND Internal Medicine
DX: G45.9 Transient cerebral ischemic attack, unspecified (principal); E11.40 Type 2 diabetes mellitus with diabetic neuropathy, unspecified; F41.9 Anxiety disorder, unspecified; I10 Essential (primary) hypertension; L40.9 Psoriasis, unspecified; Z88.0 Allergy status to penicillin; Z79.899 Other long term (current) drug therapy
CPT/HCPCS: 36415; 70450; 71045; 80053; 81001; 82948; 83735; 84484; 85025; 86886; 86900; 86901; 87081; 93005; 96361; 96374; 96375; 97116; 97163-GP; 99291; 99292; J1644; J1815; J2270; J2405; J3475; Q0092

== ENCOUNTER 2022-09-30 16:58 | Emergency (ER) | payer OTHER ==
[~2022-09-30] VITALS: Ht 180.3 cm; Wt 106.6 kg
[~2022-09-30 16:58] MED LIST changes: -CEPH-588 PO; -CIPR500T4 PO; +GABA300C55 PO; +GLIP5TAB13 PO; +IBUP-2217 PO; +LOSA100T52 PO; +METF-346 PO; -METR-520 PO; -TAM75 PO
[2022-09-30 17:09] VITALS: BP 146/77; PULSE 86; RESP 20; TEMP 98.2; O2SAT 100
[2022-09-30] MEDS ORDERED: ONDANSETRON 4 MG ODT PO ONE (17:50)
[2022-09-30] MEDS ORDERED: KETOROLAC 60 MG/2 ML VIAL IM ONE (18:25)
[2022-09-30] MEDS ORDERED: ATA25 PO (18:37)
[2022-09-30] MEDS ORDERED: ONDA8TAB87 PO (18:37)
[2022-09-30] MEDS ORDERED: IBUP-2213 PO (18:37)
[2022-09-30] MEDS ORDERED: OMEP40EC23 PO (18:37)
[2022-09-30 18:45] VITALS: BP 135/65; PULSE 82; RESP 17; TEMP 98.2; O2SAT 100
== END 2022-09-30 18:45 | disposition home or self-care (01) ==
LOC: MED 16:58
DX: R11.2 Nausea with vomiting, unspecified (principal); R10.13 Epigastric pain; R19.7 Diarrhea, unspecified; E11.9 Type 2 diabetes mellitus without complications; I10 Essential (primary) hypertension; Z88.0 Allergy status to penicillin; Z79.4 Long term (current) use of insulin; Z79.899 Other long term (current) drug therapy
CPT/HCPCS: 96372; 99283; J1885; Q0162

== ENCOUNTER 2022-11-02 09:51 | Emergency (ER) | payer OTHER ==
[~2022-11-02] VITALS: Ht 172.7 cm; Wt 105.7 kg
[~2022-11-02 09:51] MED LIST changes: -BPM/118S31 PO; +BROM118S70 PO; +DICL100G32 TP; -DICL100G5 TP; +OMEP40EC23 PO; +ONDA8TAB87 PO
[2022-11-02 10:18] VITALS: BP 151/85; PULSE 107; RESP 20; TEMP 97.8; O2SAT 98
[2022-11-02] MEDS ORDERED: CYCLOBENZAPRINE 10 MG TAB PO ONE (11:30)
[2022-11-02] MEDS ORDERED: ACETAMINOPHEN 325 MG TAB PO ONE (11:30)
[2022-11-02] MEDS ORDERED: LIDOCAINE 5% 1 EA PATCH TP ONE (11:30)
[2022-11-02] MEDS ORDERED: KETOROLAC 60 MG/2 ML VIAL IM ONE (11:30)
[2022-11-02] MEDS ORDERED: HYDR-5191 PO (12:50)
[2022-11-02] MEDS ORDERED: CYCL-711 PO (12:50)
[2022-11-02 12:57] VITALS: BP 148/85; PULSE 93; RESP 20; TEMP 97.8; O2SAT 98
== END 2022-11-02 12:57 | disposition home or self-care (01) ==
LOC: MED 09:51
DX: M54.50 Low back pain, unspecified (principal); G89.29 Other chronic pain; E11.9 Type 2 diabetes mellitus without complications; I10 Essential (primary) hypertension; Z79.84 Long term (current) use of oral hypoglycemic drugs; Z88.0 Allergy status to penicillin; Z79.899 Other long term (current) drug therapy; Z98.890 Other specified postprocedural states
CPT/HCPCS: 82948; 96372; 99284; J1885

== ENCOUNTER 2023-08-14 22:42 | Emergency (ER) | payer OTHER ==
[~2023-08-14] VITALS: Ht 180.3 cm; Wt 96.6 kg
[~2023-08-14 22:42] MED LIST changes: -GLIP5TAB13 PO; +GLIP5TAB22 PO; +HYDR-5071 PO
[2023-08-14 23:11] VITALS: BP 105/67; PULSE 86; RESP 15; TEMP 97.9; O2SAT 100
[2023-08-15] MEDS: KETOROLAC 30 MG/ML VIAL IM ONE (05:13)
[2023-08-15 06:10] LABS: BASOPHILS # (AUTO) 0.1 K/uL (0.00-0.22); BASOPHILS % (AUTO) 1.9 % (0.0-2.0); EOSINOPHILS # (AUTO) 0.2 K/uL (0-0.4); EOSINOPHILS % (AUTO) 4.2 % (0.0-4.0); HEMATOCRIT 45.5 % (36-52); HEMOGLOBIN 15.2 g/dL (12.0-18.0); LYMPHOCYTES # (AUTO) 1.6 K/uL (2.0-11.5); LYMPHOCYTES % (AUTO) 29.3 % (20.5-51.1); MEAN CORPUSCULAR HEMOGLOBIN 28 pg (27-31); MEAN CORPUSCULAR HGB CONC 33 g/dL (33-37); MONOCYTES # (AUTO) 0.7 K/uL (0.8-1.0); MONOCYTES % (AUTO) 12.1 % (1.7-9.3); NEUTROPHILS # (AUTO) 2.9 K/uL (1.8-7.7); NEUTROPHILS % (AUTO) 52.5 % (42.2-75.2); PLATELET COUNT (AUTO) 210 K/uL (140-450); RED BLOOD CELL COUNT(AUTO) 5.42 MIL/uL (4.20-6.10); WHITE BLOOD COUNT (AUTO) 5.5 K/uL (4.8-10.8)
[2023-08-15 06:43] LABS: ANION GAP 17.4 (8-16); CARBON DIOXIDE 19.2 mmol/L (21-32); CREATININE 1.5 mg/dL (0.6-1.3); POTASSIUM 3.6 mmol/L (3.5-5.1)
[2023-08-15] MEDS ORDERED: ACET-10509 PO (07:01)
[2023-08-15 07:17] VITALS: BP 119/77; PULSE 61; RESP 22; TEMP 98.3; O2SAT 98
== END 2023-08-15 07:17 | disposition home or self-care (01) ==
LOC: MED 22:42
DX: R53.1 Weakness (principal); E86.0 Dehydration; E11.9 Type 2 diabetes mellitus without complications; I10 Essential (primary) hypertension; Z79.899 Other long term (current) drug therapy; Z88.0 Allergy status to penicillin
CPT/HCPCS: 36415; 80048; 82948; 84484; 85025; 93005; 96372; 99285; J1885

== ENCOUNTER 2023-09-07 08:45 | Emergency (ER) | payer OTHER ==
[~2023-09-07] VITALS: Ht 180.3 cm; Wt 99.0 kg
[~2023-09-07 08:45] MED LIST changes: +ACET-10509 PO
[2023-09-07 08:59] VITALS: BP 158/104; PULSE 77; RESP 16; TEMP 98.1; O2SAT 98
[2023-09-07 10:32] VITALS: TEMP 98
[2023-09-07] MEDS: KETOROLAC 60 MG/2 ML VIAL IM ONE (10:38)
[2023-09-07 10:40] LABS: BASOPHILS # (AUTO) 0.1 K/uL (0.00-0.22); BASOPHILS % (AUTO) 0.9 % (0.0-2.0); EOSINOPHILS # (AUTO) 0.4 K/uL (0-0.4); EOSINOPHILS % (AUTO) 4.9 % (0.0-4.0); HEMATOCRIT 42.5 % (36-52); LYMPHOCYTES # (AUTO) 1.6 K/uL (2.0-11.5); MEAN CORPUSCULAR HEMOGLOBIN 28 pg (27-31); MEAN CORPUSCULAR HGB CONC 33 g/dL (33-37); MEAN CORPUSCULAR VOLUME 83.8 fL (80-94); MONOCYTES # (AUTO) 0.5 K/uL (0.8-1.0); MONOCYTES % (AUTO) 6.3 % (1.7-9.3); NEUTROPHILS # (AUTO) 5.7 K/uL (1.8-7.7); NEUTROPHILS % (AUTO) 68.9 % (42.2-75.2); PLATELET COUNT (AUTO) 237 K/uL (140-450); RED BLOOD CELL COUNT(AUTO) 5.07 MIL/uL (4.20-6.10); RED CELL DISTRIBUTION WIDTH 14.4 % (11.6-13.7); WHITE BLOOD COUNT (AUTO) 8.3 K/uL (4.8-10.8)
[2023-09-07 10:59] LABS: ANION GAP 9.6 (8-16); CALCIUM 9.3 mg/dL (8.5-10.1); CARBON DIOXIDE 30.2 mmol/L (21-32); CREATININE 0.9 mg/dL (0.6-1.3); POTASSIUM 3.8 mmol/L (3.5-5.1)
[2023-09-07 12:50] VITALS: BP 143/77; PULSE 54; RESP 21; O2SAT 97
[2023-09-07 12:51] LABS: ALANINE AMINOTRANSFERASE 20 U/L (12-78); ALBUMIN 3.1 g/dL (3.4-5.0); ALKALINE PHOSPHATASE 109 U/L (50-136); ASPARTATE AMINOTRANSFERASE 13 U/L (15-37); BILIRUBIN,DIRECT 0.1 mg/dL (0.0-0.3); LIPASE 62 U/L (16-77); TOTAL BILIRUBIN 0.4 mg/dL (0.0-1.0); TOTAL PROTEIN, SERUM 6.9 g/dL (6.4-8.2)
== END 2023-09-07 13:24 | disposition home or self-care (01) ==
LOC: MED 08:45
DX: R07.89 Other chest pain (principal); J06.9 Acute upper respiratory infection, unspecified; E11.9 Type 2 diabetes mellitus without complications; I10 Essential (primary) hypertension; F17.210 Nicotine dependence, cigarettes, uncomplicated; Z98.890 Other specified postprocedural states; Z79.899 Other long term (current) drug therapy; Z88.0 Allergy status to penicillin
CPT/HCPCS: 36415; 71045; 80048; 80076; 82948; 83690; 84484; 85025; 93005; 96372; 99285; J1885; Q0092

== ENCOUNTER 2023-10-01 06:28 | Day surgery (SDC) | payer OTHER ==
[~2023-10-01] VITALS: Ht 180.3 cm; Wt 97.5 kg
[~2023-10-01 06:28] MED LIST changes: -ACET-10509 PO; +ACET500T99 PO
[2023-10-01] MEDS ORDERED: LIDOCAINE 2% 100 MG/5 ML UJET TP ONE (07:34)
[2023-10-01] MEDS ORDERED: fentaNYL citrate 0.05 MG/ML VIAL ONE (07:34)
[2023-10-01] MEDS ORDERED: KETOROLAC 30 MG/ML VIAL ONE (08:07)
[2023-10-01] MEDS: KETOROLAC 30 MG/ML VIAL IVP ONE (08:10)
== END 2023-10-01 09:30 | disposition home or self-care (01) ==
LOC: MOR 06:28 → MMU 06:29 → MOR 09:30
PROVIDERS: ATTEND Internal Medicine Gastroenterology
DX: Z12.11 Encounter for screening for malignant neoplasm of colon (principal); K57.30 Diverticulosis of large intestine without perforation or abscess without bleeding; I10 Essential (primary) hypertension; E11.9 Type 2 diabetes mellitus without complications; F32.A Depression, unspecified; M19.90 Unspecified osteoarthritis, unspecified site; F17.210 Nicotine dependence, cigarettes, uncomplicated; Z86.010 Personal history of colon polyps; Z88.0 Allergy status to penicillin; Z79.899 Other long term (current) drug therapy; Z98.890 Other specified postprocedural states
CPT/HCPCS: 45378; 82948; J1885; J3010

== ENCOUNTER 2023-10-05 19:21 | Emergency (ER) | payer OTHER ==
[~2023-10-05] VITALS: Ht 180.3 cm; Wt 100.7 kg
[~2023-10-05 19:21] MED LIST changes: -ATA25 PO; -ATI.5 PO; -BEN10 PO; -BENZ-300 PO; -BROM118S70 PO; -LOPE1TAB14 PO; -OMEP40EC23 PO; -ONDA-188 PO; -ONDA8TAB87 PO; -PROM118S5 PO
[2023-10-05 19:48] VITALS: BP 125/70; PULSE 80; RESP 17; TEMP 98; O2SAT 98
[2023-10-05 21:04] VITALS: O2SAT 98
[2023-10-05] MEDS: DEXAMETHASONE 10 MG/ML VIAL IM ONE (21:26)
[2023-10-05] MEDS: KETOROLAC 60 MG/2 ML VIAL IM ONE (21:27)
[2023-10-05 23:31] VITALS: O2SAT 98
[2023-10-05] MEDS ORDERED: MELO-176 PO (23:50)
[2023-10-06 00:15] VITALS: BP 125/70; PULSE 80; RESP 17; TEMP 98; O2SAT 98
== END 2023-10-06 00:15 | disposition home or self-care (01) ==
LOC: MED 19:21
DX: M54.50 Low back pain, unspecified (principal); E11.9 Type 2 diabetes mellitus without complications; I10 Essential (primary) hypertension; Z98.890 Other specified postprocedural states; Z79.899 Other long term (current) drug therapy; Z88.0 Allergy status to penicillin
CPT/HCPCS: 96372; 99284; J1100; J1885

== ENCOUNTER 2023-10-12 09:28 | Emergency (ER) | payer OTHER ==
[~2023-10-12] VITALS: Ht 180.3 cm; Wt 101.6 kg
[~2023-10-12 09:28] MED LIST changes: +MELO-176 PO
[2023-10-12 09:44] VITALS: BP 148/71; PULSE 72; RESP 20; TEMP 98.1; O2SAT 100
--- NOTE | 2023-10-12 09:48 | NUR ---
PT TO BED 11
[2023-10-12 09:56] VITALS: BP 148/71; PULSE 72; RESP 20; TEMP 98.1
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
[2023-10-12 10:00] VITALS: O2SAT 100
--- NOTE | 2023-10-12 10:16 | NUR ---
PA RODRIGUEZ AT BEDTIME EVALUATING PATIENT
--- NOTE | 2023-10-12 10:30 | NUR ---
REGINA CURRY. WAS SEEN BY LUIS EDUARDO RODRIGUEZ BUT REQUEST TO LEAVE.
== END 2023-10-12 10:30 | disposition left against medical advice (07) ==
LOC: MED 09:28
DX: R04.0 Epistaxis (principal); M54.50 Low back pain, unspecified; G89.29 Other chronic pain; E11.9 Type 2 diabetes mellitus without complications; I10 Essential (primary) hypertension; Z79.899 Other long term (current) drug therapy; Z88.0 Allergy status to penicillin
CPT/HCPCS: 99281

== ENCOUNTER 2023-10-12 11:35 | Emergency (ER) | payer OTHER ==
[~2023-10-12] VITALS: Ht 180.3 cm; Wt 102.5 kg
[2023-10-12 11:41] VITALS: BP 136/87; PULSE 70; RESP 18; TEMP 98.5; O2SAT 98
[2023-10-12 12:33] VITALS: O2SAT 98
== END 2023-10-12 13:40 | disposition home or self-care (01) ==
LOC: MED 11:35
DX: R04.0 Epistaxis (principal); G89.29 Other chronic pain; M54.9 Dorsalgia, unspecified; E11.9 Type 2 diabetes mellitus without complications; I10 Essential (primary) hypertension; Z79.899 Other long term (current) drug therapy; Z88.0 Allergy status to penicillin
CPT/HCPCS: 82948; 99281; 99282

== ENCOUNTER 2023-11-04 20:17 | Emergency (ER) | payer OTHER ==
[~2023-11-04] VITALS: Ht 180.3 cm; Wt 97.1 kg
[2023-11-04 20:43] VITALS: BP 147/88; PULSE 98; RESP 20; TEMP 98; O2SAT 98
[2023-11-04 21:35] LABS: APPEARANCE,URINE SLIGHTLY HAZY (CLEAR); BILIRUBIN,URINE 1+ (NEGATIVE); BLOOD, URINE NEGATIVE (NEGATIVE); COLOR,URINE YELLOW (YELLOW); LEUKOCYTE ESTERASE ,URINE NEGATIVE (NEGATIVE); NITRITE, URINE NEGATIVE (NEGATIVE); PH,URINE 6.5 (5.0-9.0); PROTEIN,URINE 1+ (NEGATIVE); UGLUCOSE TRACE (NEGATIVE); UROBILINOGEN,URINE 0.2 EU/dL (0.2 - 1)
[2023-11-04 21:39] LABS: ICTOTEST POSITIVE (NEGATIVE)
[2023-11-04 21:40] LABS: BACTERIA,URINE 1+ /HPF (None Seen); MUCUS,URINE None Seen /LPF (None Seen); RBC,URINE 0 /HPF (0-5); SQUAMOUS EPITHELIAL CELL,UR 0-3 (FEW) /LPF (0-3 (FEW)); WBC,URINE 0-5 /HPF (0-5)
[2023-11-04] MEDS: MORPHINE SULFATE 4 MG/ML SYR IM ONE (21:41)
[2023-11-04] MEDS ORDERED: ACET-8905 PO (21:47)
== END 2023-11-04 21:51 | disposition home or self-care (01) ==
LOC: MED 20:17
DX: G89.29 Other chronic pain (principal); M54.50 Low back pain, unspecified; R53.1 Weakness; E11.9 Type 2 diabetes mellitus without complications; I10 Essential (primary) hypertension; Z98.890 Other specified postprocedural states; Z79.899 Other long term (current) drug therapy; Z88.0 Allergy status to penicillin
CPT/HCPCS: 81001; 87086; 96372; 99283; J2270

== ENCOUNTER 2023-11-13 23:43 | Emergency (ER) | payer OTHER ==
[~2023-11-13] VITALS: Ht 180.3 cm; Wt 97.1 kg
[2023-11-13 23:57] VITALS: BP 137/69; PULSE 83; RESP 16; TEMP 98.1; O2SAT 98
[2023-11-14 03:27] VITALS: O2SAT 98
[2023-11-14] MEDS: MORPHINE SULFATE 4 MG/ML SYR IM ONE (03:42)
[2023-11-14 04:01] VITALS: BP 137/69; PULSE 83; RESP 16; TEMP 98.1; O2SAT 98
== END 2023-11-14 04:02 | disposition home or self-care (01) ==
LOC: MED 23:43
DX: M79.605 Pain in left leg (principal); M79.604 Pain in right leg; E11.9 Type 2 diabetes mellitus without complications; I10 Essential (primary) hypertension; F17.200 Nicotine dependence, unspecified, uncomplicated; Z79.84 Long term (current) use of oral hypoglycemic drugs; Z79.899 Other long term (current) drug therapy; Z98.890 Other specified postprocedural states; Z88.0 Allergy status to penicillin
CPT/HCPCS: 96372; 99283; J2270

== ENCOUNTER 2023-11-30 22:54 | Emergency (ER) | payer OTHER ==
[~2023-11-30] VITALS: Ht 180.3 cm; Wt 97.1 kg
[2023-11-30 23:03] VITALS: BP 150/77; PULSE 83; RESP 18; TEMP 97.6; O2SAT 98
[2023-11-30 23:30] VITALS: O2SAT 98
[2023-11-30 23:33] VITALS: PULSE 83
[2023-11-30 23:44] LABS: BASOPHILS # (AUTO) 0.1 K/uL (0.00-0.22); BASOPHILS % (AUTO) 0.7 % (0.0-2.0); EOSINOPHILS # (AUTO) 0.4 K/uL (0-0.4); EOSINOPHILS % (AUTO) 3.9 % (0.0-4.0); HEMATOCRIT 48.8 % (36-52); LYMPHOCYTES # (AUTO) 2.4 K/uL (2.0-11.5); LYMPHOCYTES % (AUTO) 22.3 % (20.5-51.1); MEAN CORPUSCULAR HEMOGLOBIN 27 pg (27-31); MEAN CORPUSCULAR HGB CONC 33 g/dL (33-37); MEAN CORPUSCULAR VOLUME 82.6 fL (80-94); MONOCYTES # (AUTO) 0.6 K/uL (0.8-1.0); MONOCYTES % (AUTO) 5.8 % (1.7-9.3); NEUTROPHILS # (AUTO) 7.2 K/uL (1.8-7.7); NEUTROPHILS % (AUTO) 67.3 % (42.2-75.2); PLATELET COUNT (AUTO) 251 K/uL (140-450); RED BLOOD CELL COUNT(AUTO) 5.91 MIL/uL (4.20-6.10); RED CELL DISTRIBUTION WIDTH 14.2 % (11.6-13.7); WHITE BLOOD COUNT (AUTO) 10.8 K/uL (4.8-10.8)
[2023-11-30 23:53] LABS: CALCIUM 9.3 mg/dL (8.5-10.1); CREATININE 0.8 mg/dL (0.6-1.3)
[2023-12-01] MEDS: KETOROLAC 30 MG/ML VIAL IM ONE (00:04)
[2023-12-01] MEDS ORDERED: ATA25 PO (00:24)
[2023-12-01 01:00] VITALS: O2SAT 98
== END 2023-12-01 00:45 | disposition home or self-care (01) ==
LOC: MED 22:54
DX: R07.89 Other chest pain (principal); F43.9 Reaction to severe stress, unspecified; E11.9 Type 2 diabetes mellitus without complications; I10 Essential (primary) hypertension; G89.29 Other chronic pain; M79.605 Pain in left leg; M79.604 Pain in right leg; M47.819 Spondylosis without myelopathy or radiculopathy, site unspecified; Z79.84 Long term (current) use of oral hypoglycemic drugs; Z79.899 Other long term (current) drug therapy; Z88.0 Allergy status to penicillin
CPT/HCPCS: 36415; 71045; 80048; 84484; 85025; 93005; 96372; 99285; J1885; Q0092